=== PATIENT | male | born 1960 | race Caucasian/White ===

== ENCOUNTER 2019-04-18 22:22 | Inpatient (IN) | payer OTHER ==
[~2019-04-18] VITALS: Ht 180.3 cm; Wt 73.9 kg
[2019-04-18 22:30] VITALS: BP_SYST 148
[2019-04-18] MEDS ORDERED: MORPHINE 4 MG/ML INJ. SYRINGE IVP ONE (23:00)
[2019-04-18] MEDS ORDERED: LORazepam 2 MG/ML VIAL (FOR ER USE) IM ONE (23:30)
[2019-04-19] MEDS ORDERED: MED4 PO (01:36)
[2019-04-19] MEDS ORDERED: TRAM50TA2 PO (01:37)
[2019-04-19] MEDS ORDERED: NACL 0.9% 1,000 ML IV ONE (02:15)
[2019-04-19] MEDS ORDERED: ACETAMINOPHEN 325 MG TABLET PO PRN (02:30)
[2019-04-19 02:49] LABS: BASOPHILS # (AUTO) 0.1 K/uL (0.0-0.2); BASOPHILS % (AUTO) 0.4 % (0.0-2.0); HEMOGLOBIN 16.3 g/dL (14.0-18.0); LYMPHOCYTES # (AUTO) 0.8 K/uL (1.0-5.5); LYMPHOCYTES % (AUTO) 5.4 % (20.5-51.5); MEAN CORPUSCULAR HEMOGLOBIN 33 pg (27-31); MEAN CORPUSCULAR HGB CONC 35 % (32-36); MEAN CORPUSCULAR VOLUME 96 fL (79.0-98.0); MONOCYTES # (AUTO) 0.3 K/uL (0.0-1.0); MONOCYTES % (AUTO) 2.3 % (1.7-9.3); NEUTROPHILS # (AUTO) 12.8 K/uL (1.8-7.7); NEUTROPHILS % (AUTO) 91.9 % (40.0-70.0); PLATELET COUNT (AUTO) 271 K/uL (130-430); RED BLOOD CELL COUNT(AUTO) 4.91 MIL/uL (4.2-6.2); RED CELL DISTRIBUTION WIDTH 12.4 % (9.0-15.0); WHITE BLOOD COUNT (AUTO) 13.9 K/uL (4.8-10.8)
[2019-04-19 03:10] LABS: CALCIUM 9.4 mg/dL (8.4-11.0); CREATININE 0.92 mg/dL (0.55-1.30); POTASSIUM 4.3 mmol/L (3.5-5.1)
[2019-04-19 03:27] LABS: ALBUMIN 4.1 g/dL (3.4-4.8); TOTAL BILIRUBIN 0.6 mg/dL (0.0-1.0)
[2019-04-19 03:49] VITALS: BP_SYST 144
[2019-04-19 07:45] VITALS: BP_SYST 139
[2019-04-19] MEDS: MORPHINE 4 MG/ML INJ. SYRINGE IVP PRN ×4 (07:45→21:49)
[2019-04-19] MEDS: ENOXAPARIN SODIUM 40 MG/0.4 ML SYRINGE SUBCUT SCH (08:28)
[2019-04-19] MEDS ORDERED: traMADol HCL HCL 50 MG TABLET (ULTRAM) PO PRN (08:30)
[2019-04-19] MEDS ORDERED: methylPREDNISolone 4 MG TABLET PO SCH (09:00)
[2019-04-19 11:29] VITALS: BP_SYST 150
[2019-04-19] MEDS: ONDANSETRON HCL 4 MG/2 ML VIAL IVP PRN (14:03)
[2019-04-19 15:35] VITALS: BP_SYST 164
[2019-04-19 20:00] VITALS: BP_SYST 143
[2019-04-19 21:00] VITALS: BP_SYST 143
[2019-04-20] VITALS (7 sets, daily range): BP systolic 123–143
[2019-04-20] MEDS: MORPHINE 4 MG/ML INJ. SYRINGE IVP PRN ×2 (02:05→05:33)
[2019-04-20] MEDS ORDERED: PATIENT'S OWN TABLET PO SCH (08:30)
[2019-04-20] MEDS: ENOXAPARIN SODIUM 40 MG/0.4 ML SYRINGE SUBCUT SCH (08:39)
[2019-04-20] MEDS: ONDANSETRON HCL 4 MG/2 ML VIAL IVP PRN ×2 (08:46→18:10)
[2019-04-20] MEDS ORDERED: METHYLPREDNISOLONE 4 MG PO ONE (09:15)
[2019-04-20] MEDS: HYDROmorphone 2 MG/ML VIAL IVP PRN ×3 (10:58→21:09)
[2019-04-20] MEDS ORDERED: IOHEXOL 50 ML IV ONE (11:31)
[2019-04-20] MEDS: MEDROL 4 MG PO SCH ×3 (12:25→21:08)
[2019-04-20] MEDS ORDERED: LORazepam 2 MG/ML VIAL IVP ONE (14:00)
[2019-04-20] MEDS ORDERED: LORazepam 2 MG/ML VIAL ONE (14:11)
[2019-04-21] MEDS: HYDROmorphone 1 MG INJ. 1 MG/ML AMPUL IVP PRN ×3 (01:31→11:20)
[2019-04-21] MEDS: METHYLPREDNISOLONE 4 MG PO SCH ×2 (08:43→13:06)
[2019-04-21] MEDS: ENOXAPARIN SODIUM 40 MG/0.4 ML SYRINGE SUBCUT SCH (08:44)
[2019-04-21 08:49] VITALS: BP_SYST 144
[2019-04-21 12:49] VITALS: BP_SYST 164
[2019-04-21 14:46] VITALS: BP_SYST 140
[2019-04-22] MEDS ORDERED: METHYLPREDNISOLONE 4 MG PO SCH (08:30)
[2019-04-23] MEDS ORDERED: METHYLPREDNISOLONE 4 MG PO SCH (08:30)
== END 2019-04-21 15:10 | disposition home or self-care (01) | DRG 552 ==
LOC: SED 22:22 → SMU 04-19 02:21
PROVIDERS: ADMIT Internal Medicine; ATTEND Internal Medicine
PROC: 3E0S3BZ Introduction of Anesthetic Agent into Epidural Space, Percutaneous Approach (ICD-10-PCS; 2019-04-20)
PROC: 3E0S33Z Introduction of Anti-inflammatory into Epidural Space, Percutaneous Approach (ICD-10-PCS; principal; 2019-04-20 12:30)
DX: M54.16 Radiculopathy, lumbar region (principal); Z79.899 Other long term (current) drug therapy
CPT/HCPCS: 36415; 72131; 72148; 72192-TC; 76000; 80053; 85025; 87081; 96360; 96372; 97116-GP; 97530-GP; 99285; J1170; J1650; J2060; J2270; J2405; J7509; Q9967